=== PATIENT | female | born 1950 | race American Indian/Alaskan Native ===

== ENCOUNTER 2018-10-02 08:53 | Outpatient (CLI) | payer MEDICARE ==
--- NOTE | 2018-10-02 10:24 | Ultrasound Report ---
TRANSABDOMINAL PELVIC AND TRANSVAGINAL ULTRASOUND HISTORY: RIGHT LOWER QUADRANT PAIN. Postmenopausal. COMPARISON: None. TECHNIQUE: Routine transabdominal and transvaginal pelvic ultrasound performed. FINDINGS: TRANSABDOMINAL PELVIC ULTRASOUND: Uterus: Normal size and echogenicity without uterine mass. Uterus measures 6.1 x 2.2 x 4.0 cm. Endometrium: Normal in thickness. Right Ovary: Not seen. Left Ovary: Not seen. Additional findings: Transvaginal exam was performed for better delineation of the endometrium and ov nell. TRANSVAGINAL PELVIC ULTRASOUND: Uterus: Normal size and echogenicity. No masses. Endometrium: Normal. 2.5 mm. Right Ovary: Normal size, blood flow and appearance measuring 1.8 x 1.0 x 0.9 cm. Left Ovary: Normal size, blood flow and appearance measuring 2.7 x 1.2 x 1.1 cm. Additional findings: None. IMPRESSION Normal postmenopausal pelvis with normal uterus and ovaries. No explanation for right pelvic pain. Signer Name: Min Turner MD Signed: 10/02/2018 10:19 AM Workstation Name: [id number]
== END 2018-10-02 08:54 | disposition home or self-care (01) ==
LOC: SPVWC 08:53
PROVIDERS: ATTEND Internal Medicine
DX: R10.31 Right lower quadrant pain (principal); Z78.0 Asymptomatic menopausal state
CPT/HCPCS: 76830; 76856